=== PATIENT | female | born 1930 | race Caucasian/White ===

== ENCOUNTER 2016-06-18 06:44 | Day surgery (SDC) | payer OTHER ==
[2016-06-18 07:44] VITALS: BMI 23.9
[2016-06-18] MEDS ORDERED: PROPOFOL 20 ML ONE (07:55)
[2016-06-18] MEDS ORDERED: LIDOCAINE HCL 2% (20ML MULTI-DOSE VIAL) NR ONE (07:55)
[2016-06-18 08:51] VITALS: TEMP 97.5
[2016-06-18 08:53] VITALS: PULSE 68
[2016-06-18 10:06] VITALS: BP 155/72
--- NOTE | 2016-06-19 12:11 | PATH ---
Surgical Pathology Report Patient Name: JOSEPH DUBON [facility]. Rec. #: [id number] /Age/Gender: 1930 (Age: 86) / F Account: [id number] Location: U-ENDOSCOPY Taken: 06/18/2016 Received: 06/18/2016 Reported: 06/19/2016 Physicians: Cristhian Delvalle M.D. Specimen(s) Received A: BX CARDIA B: BX GE JUNCTION Clinical History Dysphagia Esophagitis with ulcer, nodule in GE junction, hiatal hernia Final Diagnosis A. 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 NO DYSPLASIA IDENTIFIED. IMMUNOSTAIN FOR H. PYLORI IS NEGATIVE. B. GE JUNCTION, BIOPSY: SQUAMOUS MUCOSA WITH PAPILLOMATOSIS SUGGESTIVE OF REFLUX ESOPHAGITIS. NO INTESTINAL METAPLASIA IDENTIFIED (NO HUNTER'S IDENTIFIED). Comment: The area of intestinal metaplasia may represent gastric intestinal metaplasia or possibly Hunter's esophagus. Recommend correlation with clinical findings and followup as clinically indicated. Electronically Signed Rajeev Alvarez M.D. Gross Description A. Received in formalin, labeled "biopsy cardia" is a [place], irregular portion of soft tissue measuring 0.4 cm. in greatest dimension. The specimen is submitted in toto in one cassette. B. Received in formalin, labeled "biopsy GE junction" is a [place], irregular portion of soft tissue measuring 0.3 cm. in greatest dimension. The specimen is submitted in toto in one cassette. DL/06/18/2016 saudi06/18/2016
== END 2016-06-18 10:00 | disposition home or self-care (01) ==
LOC: JASU-ENDO 06:44
PROVIDERS: ATTEND Internal Medicine Gastroenterology
PROC: 0DB38ZX Excision of Lower Esophagus, Via Natural or Artificial Opening Endoscopic, Diagnostic (ICD-10-PCS; 2016-06-18)
PROC: 0DB48ZX Excision of Esophagogastric Junction, Via Natural or Artificial Opening Endoscopic, Diagnostic (ICD-10-PCS; principal; 2016-06-18 08:00)
DX: K21.0 Gastro-esophageal reflux disease with esophagitis (principal); K44.9 Diaphragmatic hernia without obstruction or gangrene; K22.10 Ulcer of esophagus without bleeding
CPT/HCPCS: 88305-TC; 88342-TC

== ENCOUNTER 2016-11-19 11:44 | Day surgery (SDC) | payer OTHER ==
[2016-11-16 15:49] VITALS: BMI 23.8
[2016-11-19] MEDS ORDERED: PROPOFOL 20 ML ONE ×2 (13:44)
[2016-11-19 14:29] VITALS: TEMP 97.8
[2016-11-19 15:33] VITALS: BP 169/65; PULSE 62
--- NOTE | 2016-11-21 13:01 | PATH ---
Surgical Pathology Report Patient Name: JOSEPH DUBON [facility]. Rec. #: [id number] /Age/Gender: 1930 (Age: 86) / F Account: [id number] Location: U-ENDOSCOPY Taken: 11/20/2016 Received: 11/20/2016 Reported: 11/21/2016 Physicians: Cristhian Delvalle M.D. Specimen(s) Received A: BX GE JUNCTION B: BX STOMACH Clinical History Esophagus ulcer Bile reflux gastritis, hiatal hernia, esophagitis Final Diagnosis A. GE JUNCTION, BIOPSY: SQUAMOCOLUMNAR JUNCTIONAL MUCOSA WITH CHRONIC INFLAMMATION AND REFLUX TYPE CHANGES. NO INTESTINAL METAPLASIA (HUNTER'S ESOPHAGUS) IDENTIFIED. B. STOMACH, BIOPSY: GASTRIC OXYNTIC AND FOCALLY ANTRAL MUCOSA WITH MODERATE CHRONIC GASTRITIS WITH FOCAL SURFACE EROSIONS. IMMUNOSTAIN FOR H. PYLORI IS NEGATIVE FOR ORGANISMS. Electronically Signed Ricardo Leone M.D. Gross Description A. Received in formalin, labeled "biopsy GE junction" are 2 [place], irregular portions of soft tissue measuring 0.2 and 0.5 cm in greatest dimension. The specimens are submitted in toto in one cassette. B. Received in formalin, labeled "biopsy stomach" are 2 [place], irregular portions of soft tissue measuring 0.3 and 0.4 cm in greatest dimension. The specimens are submitted in toto in one cassette. 11/20/201611/20/2016
== END 2016-11-19 15:33 | disposition home or self-care (01) ==
LOC: JASU-ENDO 11:44
PROVIDERS: ATTEND Internal Medicine Gastroenterology
PROC: 0DB68ZX Excision of Stomach, Via Natural or Artificial Opening Endoscopic, Diagnostic (ICD-10-PCS; principal; 2016-11-19 13:30)
DX: K29.70 Gastritis, unspecified, without bleeding (principal); K44.9 Diaphragmatic hernia without obstruction or gangrene
CPT/HCPCS: 88305-TC; 88342-TC